=== PATIENT | male | born 1955 | race Caucasian/White ===

== ENCOUNTER 2018-06-01 15:15 | Emergency (ER) | payer OTHER | END 2018-06-01 17:44 | disposition home or self-care (01) | LOC: FTE 15:15 | DX: S61.411A Laceration without foreign body of right hand, initial encounter (principal); W26.8XXA Contact with other sharp object(s), not elsewhere classified, initial encounter; Y92.9 Unspecified place or not applicable | CPT/HCPCS: 12001; 99282-25 ==